=== PATIENT | female | born 1990 | race Caucasian/White ===

== ENCOUNTER → 2016-09-20 | Outpatient (CLI) | payer MEDICAID ==
[~2016-09-20] MED LIST: MOTR200T44 PO
== END ==
LOC: M OUTALCOH 07:40
PROVIDERS: ATTEND Psychiatry & Neurology Psychiatry
DX: Z03.89 Encounter for observation for other suspected diseases and conditions ruled out (principal)

== ENCOUNTER → 2017-03-26 | Outpatient (CLI) | payer OTHER | LOC: M RAD 16:11 | DX: O03.9 Complete or unspecified spontaneous abortion without complication (principal); Z3A.01 Less than 8 weeks gestation of pregnancy | CPT/HCPCS: 76801 ==

== ENCOUNTER → 2017-07-16 | Outpatient (CLI) | payer OTHER ==
[2017-07-16 10:42] LABS: HEMATOCRIT 38.9 % (36.0-47.0); MEAN CORPUSCULAR HEMOGLOBIN 30.5 pg (27.0-33.0); MEAN CORPUSCULAR HGB CONC 33.4 g/dl (32.0-36.5); MEAN CORPUSCULAR VOLUME 91.3 fl (80.0-96.0); PLATELET COUNT, AUTOMATED 262 10^3/uL (150-450); RED BLOOD COUNT 4.26 10^6/uL (4.00-5.40); RED CELL DISTRIBUTION WIDTH 11.9 % (11.5-14.5); WHITE BLOOD COUNT 7.4 10^3/uL (4.0-10.0)
[2017-07-16 11:14] LABS: ALBUMIN 3.5 GM/DL (3.2-5.2); ALBUMIN/GLOBULIN RATIO 1.09 (1.00-1.93); ALKALINE PHOSPHATASE 53 U/L (45-117); ALT/SGPT 19 U/L (12-78); ANION GAP 5 MEQ/L (8-16); AST/SGOT 14 U/L (7-37); BILIRUBIN,TOTAL 0.4 MG/DL (0.2-1.0); BLOOD UREA NITROGEN 11 MG/DL (7-18); CALCIUM LEVEL 8.6 MG/DL (8.5-10.1); CARBON DIOXIDE LEVEL 28 MEQ/L (21-32); CHLORIDE LEVEL 108 MEQ/L (98-107); CHOLESTEROL LEVEL 163 MG/DL (<200); CHOLESTEROL RISK RATIO 2.629 (<5); CREATININE FOR GFR 0.82 MG/DL (0.55-1.30); GLOMERULAR FILTRATION RATE > 60.0 (>60); GLUCOSE, FASTING 91 MG/DL (70-100); HDL CHOLESTEROL 62 MG/DL (>40); IRON (FE) 74 UG/DL (50-170); LDL CHOLESTEROL 88.8 MG/DL (<100); NON-HDL-C 101 MG/DL; PERCENT SATURATION 21.9 % (13.2-45.0); POTASSIUM SERUM 4.3 MEQ/L (3.5-5.1); SODIUM LEVEL 141 MEQ/L (136-145); THYROXINE (T4) 8.5 UG/DL (4.5-12.0); TOTAL IRON BINDING CAPACITY 338 UG/DL (250-450); TOTAL PROTEIN 6.7 GM/DL (6.4-8.2); TRIGLYCERIDES LEVEL 61 MG/DL (<150)
[2017-07-16 11:16] LABS: TOTAL 25(OH) VITAMIN D 26.8 NG/ML (30.0-100.0)
[2017-07-16 11:17] LABS: TOTAL T3 123.5 NG/DL (60.0-181.0)
== END ==
LOC: M LAB 09:43
DX: I10 Essential (primary) hypertension (principal)
CPT/HCPCS: 71046

== ENCOUNTER → 2017-08-21 | Outpatient (REF) | payer OTHER ==
[2017-08-21 13:16] LABS: HEMATOCRIT 37.6 % (36.0-47.0); HEMOGLOBIN 12.7 g/dl (12.0-15.5); MEAN CORPUSCULAR HEMOGLOBIN 30.9 pg (27.0-33.0); MEAN CORPUSCULAR HGB CONC 33.8 g/dl (32.0-36.5); MEAN CORPUSCULAR VOLUME 91.5 fl (80.0-96.0); PLATELET COUNT, AUTOMATED 245 10^3/uL (150-450); RED BLOOD COUNT 4.11 10^6/uL (4.00-5.40); RED CELL DISTRIBUTION WIDTH 12.1 % (11.5-14.5); WHITE BLOOD COUNT 6.9 10^3/uL (4.0-10.0)
[2017-08-21 13:17] LABS: URINE PREG TEST POSITIVE (NEGATIVE)
[2017-08-21 13:18] LABS: CONTROL LINE UCG INT CTR LINE PRESENT
[2017-08-21 14:14] LABS: HCG, SERUM QUANTITATIVE 50250 MIU/ML
[2017-08-22 08:44] LABS: RUBELLA IgG QUALITATIVE IMMUNE (IMMUNE)
[2017-08-22 08:50] LABS: HEPATITIS B SURFACE ANTIGEN NEGATIVE (NEGATIVE)
[2017-08-22 09:12] LABS: HEPATITIS C VIRUS ABY INDEX < 0.0 INDEX (<0.8)
[2017-08-22 09:13] LABS: HIV 1&2 SCREEN CENTAUR NEGATIVE (NEGATIVE)
== END ==
LOC: M LAB REF 12:40
DX: O36.80X0 Pregnancy with inconclusive fetal viability, not applicable or unspecified (principal)

== ENCOUNTER → 2017-12-11 | Outpatient (REF) | payer OTHER ==
[2017-12-12 00:22] LABS: CHLAMYDIA DNA AMPLIFICATION NEGATIVE (NEGATIVE); GC DNA AMPLIFICATION NEGATIVE (NEGATIVE)
== END ==
LOC: M LAB REF 17:06
DX: Z30.430 Encounter for insertion of intrauterine contraceptive device (principal); Z11.3 Encounter for screening for infections with a predominantly sexual mode of transmission

== ENCOUNTER 2018-12-17 10:23 | Emergency (ER) | payer OTHER, SELFPAY ==
[~2018-12-17] VITALS: Ht 167.6 cm; Wt 86.9 kg
[2018-12-17 10:23] VITALS: BP 125/80
[2018-12-17] MEDS ORDERED: MACR100C43 PO (11:24)
== END 2018-12-17 11:38 | disposition home or self-care (01) ==
LOC: M ED 10:23
DX: O23.41 Unspecified infection of urinary tract in pregnancy, first trimester (principal); Z3A.00 Weeks of gestation of pregnancy not specified

== ENCOUNTER 2018-12-29 00:14 | Emergency (ER) | payer MEDICAID, SELFPAY ==
[~2018-12-29] VITALS: Ht 167.6 cm; Wt 85.9 kg
[~2018-12-29 00:14] MED LIST changes: +MACR100C43 PO
[2018-12-29] MEDS ORDERED: AZO-95TA3 PO (00:39)
[2018-12-29 04:38] VITALS: BP 100/58
--- NOTE | 2018-12-29 08:51 | REP ---
Emergency first trimester obstetric sonography: History: Vaginal bleeding. Repeat dictation. Preliminary report is provided at time of exam by [facility]. Findings: Transabdominal and transvaginal scanning are performed. There is an intrauterine gestational sac containing a yolk sac and a 2 mm presumed embryonic pole. This would correspond to a 5-week 5-day gestational age estimate. cardiac activity was observed by the technologist. A heart rate tracing is submitted at 71 beats per minute although I am not confident that this represents cardiac activity accurately. In any event this is quite bradycardic. There is evidence of a subchorionic bleed measuring 2.3 x 1.3 x 1.2 cm. There is a 2.8 cm left ovarian cyst is seen consistent with corpus luteum. Impression: Intrauterine gestation of 5 weeks 5 days by crown-rump length. bradycardia. Clinical and sonographic followup recommended. There is a subchorionic hemorrhage 2.3 x 1.3 x 1.2 cm. Electronically Signed by Fran Hurst MD 12/29/2018 08:42 A
== END 2018-12-29 04:40 | disposition home or self-care (01) ==
LOC: M ED 00:14
DX: O20.0 Threatened abortion (principal); O99.330 Smoking (tobacco) complicating pregnancy, unspecified trimester; O23.40 Unspecified infection of urinary tract in pregnancy, unspecified trimester; Z3A.00 Weeks of gestation of pregnancy not specified

== ENCOUNTER → 2018-12-31 | Outpatient (REF) | payer MEDICAID ==
[~2018-12-31] MED LIST changes: +AZO-95TA3 PO
[2018-12-31 18:15] LABS: HEMATOCRIT 43.1 % (36.0-47.0); HEMOGLOBIN 14.2 g/dl (12.0-15.5); MEAN CORPUSCULAR HEMOGLOBIN 31.8 pg (27.0-33.0); MEAN CORPUSCULAR HGB CONC 32.9 g/dl (32.0-36.5); MEAN CORPUSCULAR VOLUME 96.6 fl (80.0-96.0); PLATELET COUNT, AUTOMATED 249 10^3/uL (150-450); RED BLOOD COUNT 4.46 10^6/uL (4.00-5.40); WHITE BLOOD COUNT 7.9 10^3/uL (4.0-10.0)
[2018-12-31 22:43] LABS: FREE T4 0.83 NG/DL (0.76-1.46); HCG, SERUM QUANTITATIVE 25989 MIU/ML
[2019-01-01 09:09] LABS: FREE T3 3.4 PG/ML (2.2-4.0)
[2019-01-01 09:39] LABS: RUBELLA IgG QUALITATIVE IMMUNE (IMMUNE)
[2019-01-01 10:08] LABS: HEPATITIS C VIRUS ABY INDEX 0.1 INDEX (<0.8); HIV 1&2 SCREEN CENTAUR NEGATIVE (NEGATIVE)
[2019-01-02 08:11] LABS: TOXOPLASMA IgG ABY <3.0 IU/mL (0.0-7.1)
== END ==
LOC: M LAB REF 16:40
PROVIDERS: ATTEND Obstetrics & Gynecology
DX: O36.80X0 Pregnancy with inconclusive fetal viability, not applicable or unspecified (principal); Z32.01 Encounter for pregnancy test, result positive

== ENCOUNTER 2019-02-11 20:57 | Emergency (ER) | payer MEDICAID, SELFPAY ==
[~2019-02-11] VITALS: Ht 167.6 cm; Wt 83.6 kg
[2019-02-11 22:17] LABS: BASO % 0.3 % (0.0-1.0); EOS # 0.1 10^3/uL (0.0-0.5); EOS % 1.4 % (0.0-3.0); HEMATOCRIT 36.8 % (36.0-47.0); HEMOGLOBIN 12.5 g/dl (12.0-15.5); LYMPH # 2.6 10^3/uL (1.5-5.0); LYMPH % 27.2 % (24.0-44.0); MEAN CORPUSCULAR HEMOGLOBIN 32.4 pg (27.0-33.0); MEAN CORPUSCULAR VOLUME 95.3 fl (80.0-96.0); MONO # 0.4 10^3/uL (0.0-0.8); MONO % 3.6 % (0.0-5.0); NEUTROPHILS # 6.5 10^3/uL (1.5-8.5); PLATELET COUNT, AUTOMATED 236 10^3/uL (150-450); RED BLOOD COUNT 3.86 10^6/uL (4.00-5.40); WHITE BLOOD COUNT 9.7 10^3/uL (4.0-10.0)
[2019-02-11] MEDS ORDERED: LEVO75TA4 (22:26)
[2019-02-11 22:56] LABS: ALBUMIN 3.2 GM/DL (3.2-5.2); ALT/SGPT 25 U/L (12-78); BILIRUBIN,DIRECT < 0.1 MG/DL (0.0-0.2); BILIRUBIN,TOTAL 0.3 MG/DL (0.2-1.0); BLOOD UREA NITROGEN 7 MG/DL (7-18); CALCIUM LEVEL 8.8 MG/DL (8.5-10.1); CARBON DIOXIDE LEVEL 26 MEQ/L (21-32); CHLORIDE LEVEL 105 MEQ/L (98-107); CREATININE FOR GFR 0.56 MG/DL (0.55-1.30); GLOMERULAR FILTRATION RATE > 60.0 (>60); GLUCOSE, FASTING 84 MG/DL (70-100); HCG, SERUM QUANTITATIVE 88407 MIU/ML; LIPASE 90 U/L (73-393); POTASSIUM SERUM 3.6 MEQ/L (3.5-5.1); SODIUM LEVEL 137 MEQ/L (136-145); TOTAL PROTEIN 6.5 GM/DL (6.4-8.2)
[2019-02-12] MEDS ORDERED: KEFL500C17 PO (01:00)
[2019-02-12] MEDS ORDERED: CEPHALEXIN 500 MG CAP PO ONE (01:00)
[2019-02-12 01:20] VITALS: BP 116/66
--- NOTE | 2019-02-12 08:04 | REP ---
Clinical: Abdominal and left flank pain. Technique: Real time thomas scale and color evaluation using curved array transducer. Findings: The bilateral kidneys are normal in contour, size, echogenicity, and reniform shape without hydronephrosis, nephrolithiasis, cystic or renal mass lesion. Right kidney measures 11.8 x 5.8 x 4.7 cm. Left kidney measures 11.4 x 4.7 x 4.5 cm. The bladder is unremarkable and bilateral ureteral jets are identified. Incidental findings include cholelithiasis without evidence for biliary ductal dilatation. The common bile duct measured 2.6 mm diameter. Impression: 1. Normal renal and bladder ultrasound. 2. Cholelithiasis noted. Electronically Signed by Marty Boone MD 02/12/2019 07:56 A
== END 2019-02-12 01:23 | disposition home or self-care (01) ==
LOC: M ED 20:57
DX: N39.0 Urinary tract infection, site not specified (principal); R10.9 Unspecified abdominal pain; E03.9 Hypothyroidism, unspecified; Z87.440 Personal history of urinary (tract) infections; Z79.899 Other long term (current) drug therapy

== ENCOUNTER → 2019-03-27 | Outpatient (CLI) | payer MEDICAID ==
[~2019-03-27] MED LIST changes: +KEFL500C17 PO; +LEVO75TA4
--- NOTE | 2019-03-27 13:46 | REP ---
Emergency obstetric sonography: History: 18 weeks gestation. Evaluate viability. Findings: Transabdominal scanning demonstrates a single living intrauterine gestation. Variable lie. motion is observed and heart rate is recorded at 134 beats per minute. A posterior placenta is seen grade 0, with evidence of complete placenta previa at this juncture. The patient declined transvaginal evaluation. Amniotic fluid is subjectively normal. Closed cervical length viewed transabdominally is 4.1 cm. No anomaly is seen. The umbilical cord is seen coursing over the neck posteriorly. No anomaly is seen. The following anatomic structures were less than optimally seen due to position: Cavum, cerebellum and posterior fossa, face and profile, four-chamber heart with left and right ventricular outflow tract views. The following anatomic structures are identified and felt to be unremarkable: cranium, choroid plexus, lungs, diaphragm, left-sided stomach, abdominal wall cord insertion, three-vessel umbilical cord, kidneys and bladder, spine, and upper and lower extremities. Biometry chart: BPD 3.7 cm = 17 weeks 3 days Head circumference 14.4 cm = 17 weeks 4 days Abdominal circumference 11.9 cm = 17 weeks 4 days Femur length 2.7 cm = 18 weeks 1 day Humeral length 2.6 cm = 18 weeks 2 days HC/AC ratio normal 1.21. Cephalic index normal 0.70. Estimated weight 213 grams, 0 pounds 7 ounces, 30th percentile for 18 weeks 2 days. Impression: Viable single intrauterine gestation at 17 weeks 6 days by today's composite sonographic criteria. Expected gestational age estimate based on prior sonography is 18 weeks 2 days. MACKENZIE by prior sonography August 26, 2019. There has been appropriate interval growth. Transabdominal images show evidence of complete placenta previa. Electronically Signed by Fran Hurst MD 03/27/2019 03:12 P
== END ==
LOC: M RAD 12:23
PROVIDERS: ATTEND Obstetrics & Gynecology
DX: Z36.89 Encounter for other specified antenatal screening (principal); Z3A.18 18 weeks gestation of pregnancy; O28.3 Abnormal ultrasonic finding on antenatal screening of mother

== ENCOUNTER → 2019-04-11 | Outpatient (CLI) | payer MEDICAID ==
--- NOTE | 2019-04-11 15:05 | REP ---
Obstetric ultrasound for anatomy follow-up: The on the prior study of 03/27/2019 the following structures were suboptimally demonstrated because of position: Cavum septum pellucidum, cerebellum/posterior fossa, face and facial profile, four-chamber view of the heart and cardiac right and left ventricular outflow tracts. Additionally, a complete placenta previa was identified previously. On the study today the cavum septum pellucidum, cerebellum/posterior fossa, face, upper lip, facial profile, four-chamber view of the heart, the end cardiac right and left ventricular outflow tracts. The remainder of the anatomy is again identified and again unremarkable as previously. There are no anomalies. A complete placenta previa is again identified. Follow-up is recommended to identify placental migration. The placenta is posterior as previously. There is a single intrauterine gestation. position is variable. There is motion and cardiac activity. The heart rate is 133 beats per minute. The amniotic fluid volume subjectively is normal. Gestational age by today's ultrasound is 19 weeks 4 days/MACKENZIE 09/01/2019. Gestational age by the first ultrasound is 20 weeks 3 days/MACKENZIE 08/26/2019. Gestational age by LMP is 20 weeks 3 days/MACKENZIE 08/26/2019. weight is 322 grams/0 pounds, 11 ounces. This is the 31st percentile for 20 weeks 3 days. Impression: Complete placenta previa with a posterior placenta. Follow-up is recommended to identify placental migration. There are no anomalies as discussed above. Electronically Signed by Wilmer Kingston MD 04/11/2019 02:57 P
== END ==
LOC: M RAD 13:05
PROVIDERS: ATTEND Obstetrics & Gynecology
DX: O44.02 Complete placenta previa NOS or without hemorrhage, second trimester (principal); Z36.89 Encounter for other specified antenatal screening; Z3A.19 19 weeks gestation of pregnancy

== ENCOUNTER → 2019-06-05 | Outpatient (CLI) | payer MEDICAID ==
--- NOTE | 2019-06-05 12:50 | REP ---
OBSTETRIC SONOGRAPHY: HISTORY: at 28 weeks. Followup complete placenta previa. Supervision of . Comparison study April 11, 2019. FINDINGS: Scanning demonstrates a viable single intrauterine gestation in a cephalic lie. motion is observed and heart rate is recorded at 150 beats per minute. A posterior placenta is seen with complete placenta previa again noted. There is no evidence of abruption, grade 1. Amniotic fluid is subjectively normal. Closed cervical length is measured transvaginally at 4.3 cm. No extrauterine abnormality is observed. There has been appropriate interval growth. No anomalies seen. The following anatomic structures are again identified today and felt to be unremarkable: cranium, choroid plexus, cavum, cerebellum and posterior fossa, face and profile, lungs, four-chamber heart, diaphragm, left-sided stomach, abdominal wall cord insertion, three-vessel cord, kidneys and bladder, spine. Biometry Chart: BPD 6.5 cm = 26 weeks 3 days HC 25.7 cm = 28 weeks 0 days AC 22.6 cm = 27 weeks 0 days FL 5.4 cm = 28 weeks 3 days HL 4.8 cm = 28 weeks 2 days HC/AC ratio normal 1.14 Cephalic index normal 0.68. Estimated weight 1091 grams, 2 pounds 6 ounces, 25th percentile for 28 weeks 2 days. DAY normal 14.8 cm. S/D ratio in the umbilical cord artery by Doppler normal 2.66. IMPRESSION: Viable single intrauterine gestation at 27 weeks 4 days by today's composite sonographic criteria for expected gestational age estimate based on prior sonography is 28 weeks 2 days. MACKENZIE by prior sonography August 26, 2019. Complete posterior placenta previa persists. Electronically Signed by Fran Hurst MD 06/05/2019 12:57 P
== END ==
LOC: M RAD 11:15
PROVIDERS: ATTEND Obstetrics & Gynecology
DX: O44.02 Complete placenta previa NOS or without hemorrhage, second trimester (principal); Z36.2 Encounter for other antenatal screening follow-up; Z3A.27 27 weeks gestation of pregnancy

== ENCOUNTER → 2019-06-13 | Outpatient (CLI) | payer MEDICAID ==
[2019-06-13 13:13] LABS: HEMATOCRIT 34.8 % (36.0-47.0); HEMOGLOBIN 11.8 g/dl (12.0-15.5); MEAN CORPUSCULAR HGB CONC 33.9 g/dl (32.0-36.5); MEAN CORPUSCULAR VOLUME 97.2 fl (80.0-96.0); PLATELET COUNT, AUTOMATED 216 10^3/uL (150-450); RED BLOOD COUNT 3.58 10^6/uL (4.00-5.40)
[2019-06-13 13:47] LABS: FREE T3 2.4 PG/ML (2.2-4.0); THYROID STIMULATING HORMONE 1.45 uIU/ML (0.358-3.740)
== END ==
LOC: M LAB 11:46
PROVIDERS: ATTEND Obstetrics & Gynecology
DX: Z36.89 Encounter for other specified antenatal screening (principal); E03.9 Hypothyroidism, unspecified; Z3A.00 Weeks of gestation of pregnancy not specified

== ENCOUNTER → 2019-07-30 | Outpatient (REF) | payer OTHER ==
[~2019-07-30] MED LIST changes: +CRAN400C PO; -LEVO75TA4; +LEVO75TA4 PO; +PREN29TA4 PO; +PRIL20TA2 PO
== END ==
LOC: M LAB REF 12:39
PROVIDERS: ATTEND Obstetrics & Gynecology
DX: Z34.83 Encounter for supervision of other normal pregnancy, third trimester (principal)

== ENCOUNTER → 2019-08-12 | Outpatient (CLI) | payer OTHER ==
[~2019-08-12] MED LIST changes: +IBUP80TA PO; +PERCOCET PO
== END ==
LOC: M LABSMTC 09:42
PROVIDERS: ATTEND Anesthesiology
DX: Z01.818 Encounter for other preprocedural examination (principal); Z11.59 Encounter for screening for other viral diseases
CPT/HCPCS: C9803; U0003

== ENCOUNTER 2019-08-15 05:28 | Inpatient (IN) | payer OTHER ==
[2019-08-15] VITALS (9 sets, daily range): BP systolic 96–120; BP diastolic 53–69
[~2019-08-15] VITALS: Ht 170.2 cm; Wt 86.1 kg
[~2019-08-15 05:28] MED LIST changes: -IBUP80TA PO; -PERCOCET PO
[2019-08-15] MEDS ORDERED: LR 1,000 ML IV SCH (05:44)
[2019-08-15] MEDS ORDERED: LACTATED RINGER'S 1000 ML IV STA (05:44)
[2019-08-15] MEDS ORDERED: BICITRA 30ML SOLN UDC PO ONE (05:45)
[2019-08-15] MEDS ORDERED: ceFAZolin SOD 2 GM in IV 1 EA IV ONE (05:45)
[2019-08-15 07:04] LABS: HEMATOCRIT 31.6 % (36.0-47.0); MEAN CORPUSCULAR HEMOGLOBIN 32.3 pg (27.0-33.0); MEAN CORPUSCULAR HGB CONC 34.8 g/dl (32.0-36.5); MEAN CORPUSCULAR VOLUME 92.7 fl (80.0-96.0); PLATELET COUNT, AUTOMATED 212 10^3/uL (150-450); RED BLOOD COUNT 3.41 10^6/uL (4.00-5.40); WHITE BLOOD COUNT 11.2 10^3/uL (4.0-10.0)
[2019-08-15] MEDS ORDERED: METOCLOPRAMIDE INJ 10MG/2ML VIAL (J2765 PER 1) IV PRN (10:07)
[2019-08-15] MEDS ORDERED: NALBUPHINE HCL 10 MG/ML AMP (J2300) IV PRN (10:07)
[2019-08-15] MEDS ORDERED: NALOXONE INJ 0.4MG/1ML VIAL (J2310 PER 1MG) IV PRN ×2 (10:07)
[2019-08-15] MEDS ORDERED: ONDANSETRON 4MG/2ML VIAL IV PRN ×2 (10:07→11:00)
[2019-08-15] MEDS ORDERED: KETOROLAC 60 MG/2 ML VIAL As Ordered ONE (10:26)
[2019-08-15] MEDS ORDERED: dexameTHASONE 4 MG/ML 1ML VIAL (J1100 PER 1MG) As Ordered ONE (10:26)
[2019-08-15] MEDS ORDERED: OXYTOCIN 30 UNITS IN 0.9% NaCl 500ML IV BAG (J2590) As Ordered ONE ×2 (10:26→11:45)
[2019-08-15] MEDS ORDERED: MORPHINE PRES-FREE INJ 10 MG/10 ML VIAL (J2274) As Ordered ONE (10:26)
[2019-08-15] MEDS ORDERED: ONDANSETRON 4MG/2ML VIAL As Ordered ONE ×2 (10:26→12:14)
[2019-08-15] MEDS ORDERED: ePHEDrine SULFATE 25 MG/5 ML(5MG/ML) SYRINGE As Ordered ONE (10:27)
[2019-08-15] MEDS ORDERED: PHENYLephrine HCL 500 MCG/5 ML (100MCG/ML) SYRINGE (J2370) As Ordered ONE (10:27)
[2019-08-15 10:32] LABS: CORD GAS ABE V -2.7; CORD GAS HCO3 V 21.1 MEQ/L; CORD GAS O2 SAT V 90.7 %; CORD GAS PCO2 V 33.8 mmHg; CORD GAS PH V 7.413 UNITS; CORD GAS SBC V 22.1 MEQ/L; CORD GAS TCO2 V 22.1 MEQ/L
[2019-08-15 10:34] LABS: CORD GAS ABE A -2.7; CORD GAS HCO3 A 24.2 MEQ/L; CORD GAS O2 SAT A 67.6 %; CORD GAS PCO2 A 50.4 mmHg; CORD GAS PH A 7.3 UNITS; CORD GAS SBC A 21.6 MEQ/L; CORD GAS TCO2 A 25.8 MEQ/L
[2019-08-15] MEDS ORDERED: OXYTOCIN DRIP 30 UNITS in IV 1 EA IV SCH (10:50)
[2019-08-15] MEDS ORDERED: oxyCODONE 5MG TAB PO PRN (11:00)
[2019-08-15] MEDS ORDERED: RHOGAM 300 MCG (1500 IU) INJ (J2790) IM SCH (11:00)
[2019-08-15] MEDS ORDERED: MOM 30ML SUSPENSION UDC PO PRN (11:00)
[2019-08-15] MEDS ORDERED: fentaNYL 100 MCG/2 ML INJECTION (J3010) IV PRN (11:00)
[2019-08-15] MEDS ORDERED: MEASLES,MUMPS,RUBELLA VACCINE INJ (MMR-II) (90707) SC SCH (11:00)
[2019-08-15] MEDS: diphenhydrAMINE 50MG/ML VIAL (J1200) IV PRN (13:17)
[2019-08-15] MEDS: KETOROLAC 30 MG/ML 1ML VIAL IV SCH ×2 (17:04→23:16)
[2019-08-15] MEDS: DOCUSATE SODIUM 100 MG CAP PO SCH (20:25)
[2019-08-16] VITALS (7 sets, daily range): BP systolic 82–119; BP diastolic 46–64
[2019-08-16] MEDS: diphenhydrAMINE 50MG/ML VIAL (J1200) IV PRN (02:23)
[2019-08-16] MEDS: KETOROLAC 30 MG/ML 1ML VIAL IV SCH (04:53)
[2019-08-16 07:01] LABS: HEMATOCRIT 28.4 % (36.0-47.0); HEMOGLOBIN 9.6 g/dl (12.0-15.5); MEAN CORPUSCULAR HGB CONC 33.8 g/dl (32.0-36.5); MEAN CORPUSCULAR VOLUME 94.7 fl (80.0-96.0); PLATELET COUNT, AUTOMATED 199 10^3/uL (150-450); WHITE BLOOD COUNT 12.1 10^3/uL (4.0-10.0)
--- NOTE | 2019-08-16 07:28 | IPNPDOC ---
Text Note Date of Service The patient was seen on 08/16/19. NOTE PO #1 Feels well. Adequate pain management. Tolerating regular diet. Voiding VSS, afebrile,normotensive Breasts soft Dressing removed. Steristrips intact. Wound well approximated without s/s infection Fundus firm Lochia rubra scant without odor PO #1 Routine care. Anticipate D/C in am VS,Fishbone, I+O VS, Fishbone, I+O Laboratory Tests 08/16/19 06:44 Vital Signs Date Time Temp Pulse Resp B/P (MAP) Pulse Ox O2 Delivery O2 Flow Rate FiO2 08/16/19 06:20 97/53 (68) 08/16/19 06:00 98.0 59 18 99 Room Air I&O- Last 24 Hours up to 6 AM 08/16/19 06:00 Intake Total 2550 ml Output Total 1450 ml Balance 1100 ml Jelena Pat CNM Aug 16, 2019 07:28
[2019-08-16] MEDS ORDERED: BOOSTRIX/ADACEL VACCINE (DIPHTH/PERTUSS/ACELL/TETANUS) 0.5ML SYR IM ONE (09:00)
[2019-08-16] MEDS: DOCUSATE SODIUM 100 MG CAP PO SCH ×2 (10:00→21:33)
[2019-08-16] MEDS: PRENATAL VITAMINS CHEWABLE TABLET PO SCH (10:00)
[2019-08-16] MEDS: IBUPROFEN 800 MG TAB PO SCH ×2 (15:03→22:06)
[2019-08-16] MEDS: PERCOCET 5MG/325MG TAB PO PRN ×2 (18:28→23:36)
[2019-08-17] MEDS: IBUPROFEN 800 MG TAB PO SCH ×2 (05:45→13:24)
[2019-08-17 05:47] VITALS: BP 96/55
[2019-08-17] MEDS: PRENATAL VITAMINS CHEWABLE TABLET PO SCH (08:35)
[2019-08-17] MEDS: PERCOCET 5MG/325MG TAB PO PRN (08:35)
[2019-08-17] MEDS: DOCUSATE SODIUM 100 MG CAP PO SCH (08:35)
[2019-08-17] MEDS ORDERED: PERCOCET PO (10:29)
[2019-08-17] MEDS ORDERED: IBUP80TA PO (10:29)
--- NOTE | 2019-08-17 10:35 | DS.PDOC ---
Discharge Summary General Date of Admission Aug 15, 2019 at 05:28 Date of Discharge 08/17/19 Attending Physician: Roberto Childress DO Discharge Summary PROCEDURES PERFORMED DURING STAY: section and spinal anesthesia. ADMITTING DIAGNOSES: 1. Placenta previa. DISCHARGE DIAGNOSES: 1. Placenta previa. COMPLICATIONS/CHIEF COMPLAINT: Placenta Previa. HISTORY OF PRESENT ILLNESS:. Cystoscopy 29-year-old who presented for scheduled section for placenta previa which was uncomplicated. HOSPITAL COURSE:. She did well and postoperatively. By post-operative day #2, had met all discharge criteria. Cystoscopy was discharged home in stable condition. DISCHARGE MEDICATIONS: Please see below. ALLERGIES: Please see below. PHYSICAL EXAMINATION ON DISCHARGE: VITAL SIGNS: Please see below. GENERAL:. Well-appearing ABDOMINAL EXAMINATION: Soft, appropriately tender. Fundus is below umbilicus. Incision was clean, dry, intact, well approximated with Steri-Strips EXTREMITIES: Negative calf tenderness LABORATORY DATA: Please see below. ACTIVITY: As tolerated. DIET: Regular DISCHARGE PLAN:. Discharge home with follow-up with Dr. Childress and 2 weeks DISCHARGE INSTRUCTIONS: 1. Follow-up in 2 weeks for incision check. 2. Remain on pelvic rest for 6 weeks. 3. Reports severe pain, heavy vaginal bleeding, fever, incisional issues. DISCHARGE CONDITION: Stable. Vital Signs/I&Os Vital Signs Date Time Temp Pulse Resp B/P (MAP) Pulse Ox O2 Delivery O2 Flow Rate FiO2 08/17/19 08:35 18 08/17/19 05:47 97.8 67 96/55 (69) 08/16/19 22:02 100 08/16/19 18:00 Room Air Discharge Medications Scheduled Cranberry (Cranberry) 400 Mg Capsule, 2 CAP PO DAILY, (Reported) Ibuprofen (Ibuprofen) 800 Mg Tablet, 800 MG PO Q8H Levothyroxine Sodium (Levothyroxine Sodium) 75 Mcg Tablet, 75 MCG PO DAILY, (Reported) Omeprazole Magnesium (Prilosec Otc) 20 Mg Tablet.dr, 20 MG PO DAILY, (Reported) Prenat 115/Iron Fum/Folic/Dss ( 19 Tablet) 1 Each Tablet, 1 TAB PO DAILY, (Reported) Scheduled PRN Oxycodone/Acetaminophen (Oxycodone-Acetaminophen 5-325) 1 Each Tablet, 1-2 TAB PO Q6HP PRN for MILD/MODERATE PAIN (PS 1-7) Allergies Coded Allergies: No Known Allergies (Verified , 08/01/19) QUYNH CHILDERS MD. Aug 17, 2019 10:35
--- NOTE | 2019-08-20 11:30 | RO ---
DATE OF PROCEDURE: 08/15/2019 Kimber is 29-year-old female with term with complete placenta previa. After counseling, decision was made to proceed with delivery via primary section. PREOPERATIVE DIAGNOSES: 1. Term . 2. Complete placenta previa. POSTOPERATIVE DIAGNOSES: 1. Term . 2. Complete placenta previa. PROCEDURE: Primary low transverse section via Pfannenstiel incision. SURGEON: Dr. 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 COMPLICATIONS: None. ESTIMATED BLOOD LOSS: 500 mL. FINDINGS: Live male infant in occiput transverse position. 9 and 9. weight 6 pounds 10 ounces. A posterior complete placenta previa noted. Placenta sent to pathology. DESCRIPTION OF PROCEDURE: After obtaining informed consent, the patient was taken to the operating room where spinal anesthetic was found to be adequate. She was then draped and prepped in the usual sterile fashion in the supine position. At this point, a Pfannenstiel incision was made. This was carried down to the fascia. Fascia was incised in midline fashion and carried through laterally. Superior aspect of the fascia was then grasped with two Martín clamps, tented off and dissected off the rectus muscles sharply. The inferior aspect was dissected off in a similar fashion. Rectus muscles in midline fashion. Peritoneum identified. Peritoneal cavity entered bluntly. Superior and inferior dissection of the peritoneum was then done with good visualization of the bladder. At this point, a Mobius skin retractor was placed. A low-transverse uterine incision was made. was delivered in atraumatic fashion. Nose and mouth bulb suctioned. Cord doubly clamped and cut. The infant was handed over to the waiting warmer. Cord blood and cord gas were sent. Placenta removed manually. Uterus cleared of all clot and debris. The uterine incision was then repaired in two separate layers of #0 Vicryl sutures. The peritoneum closed in a running fashion using #2-0 Vicryl. The fascia closed in two separate segments of #0 Vicryl sutures. All superficial bleeders were coagulated. The skin was reapproximated in subcuticular fashion using #3-0 Vicryl on a Cornel. Steri-Strips placed. The patient tolerated the procedure well. She was then transferred to recovery room in stable condition.
== END 2019-08-17 14:40 | disposition home or self-care (01) | DRG 540 ==
LOC: M LDI 05:28 → M OBS 12:20
PROVIDERS: ADMIT Obstetrics & Gynecology; ATTEND Obstetrics & Gynecology
PROC: 10D00Z1 Extraction of Products of Conception, Low, Open Approach (ICD-10-PCS; principal; 2019-08-15 07:30)
DX: O44.03 Complete placenta previa NOS or without hemorrhage, third trimester (principal); Z37.0 Single live birth; Z3A.39 39 weeks gestation of pregnancy

== ENCOUNTER → 2022-05-09 | Outpatient (REF) | payer OTHER, MEDICAID ==
[~2022-05-09] MED LIST changes: +IBUP80TA PO; +PERCOCET PO
[2022-05-09 12:46] LABS: HEMATOCRIT 31.5 % (36.0-47.0); HEMOGLOBIN 10.7 g/dl (12.0-15.5); MEAN CORPUSCULAR HEMOGLOBIN 32.2 pg (27.0-33.0); MEAN CORPUSCULAR VOLUME 94.9 fl (80.0-96.0); PLATELET COUNT, AUTOMATED 267 10^3/uL (150-450); RED BLOOD COUNT 3.32 10^6/uL (4.00-5.40); WHITE BLOOD COUNT 9.4 10^3/uL (4.0-10.0)
[2022-05-09 13:17] LABS: FREE T3 3.2 PG/ML (2.3-4.2); FREE T4 0.82 NG/DL (0.89-1.76)
[2022-05-09 13:19] LABS: THYROID STIMULATING HORMONE 4.497 uIU/ML (0.55-4.78)
[2022-05-09 14:56] LABS: HEPATITIS B SURFACE ANTIGEN NEGATIVE (NEGATIVE)
[2022-05-09 15:08] LABS: HIV 1&2 SCREEN CENTAUR NEGATIVE (NEGATIVE)
[2022-05-09 15:17] LABS: HEPATITIS C VIRUS ABY INDEX < 0.0 INDEX (<0.8)
[2022-05-09 15:19] LABS: HCG, SERUM QUANTITATIVE 11790.9 MIU/ML (<4.2)
== END ==
LOC: M LAB REF 12:21
PROVIDERS: ATTEND Obstetrics & Gynecology
DX: O36.80X0 Pregnancy with inconclusive fetal viability, not applicable or unspecified (principal); Z32.01 Encounter for pregnancy test, result positive

== ENCOUNTER → 2022-05-25 | Outpatient (CLI) | payer OTHER | LOC: M WHC 13:50 | PROVIDERS: ATTEND Obstetrics & Gynecology | DX: O36.80X0 Pregnancy with inconclusive fetal viability, not applicable or unspecified (principal); Z3A.29 29 weeks gestation of pregnancy ==

== ENCOUNTER → 2022-05-30 | Outpatient (REF) | payer OTHER, MEDICAID | LOC: M LAB REF 12:32 | PROVIDERS: ATTEND Advanced Practice Midwife | DX: Z34.82 Encounter for supervision of other normal pregnancy, second trimester (principal) ==

== ENCOUNTER → 2022-07-12 | Outpatient (REF) | payer OTHER, MEDICAID ==
[2022-07-12 17:32] LABS: FREE T3 3.3 PG/ML (2.3-4.2)
[2022-07-12 17:33] LABS: FREE T4 0.9 NG/DL (0.89-1.76); THYROID STIMULATING HORMONE 3.823 uIU/ML (0.55-4.78)
== END ==
LOC: M LAB REF 16:15
PROVIDERS: ATTEND Obstetrics & Gynecology
DX: Z34.83 Encounter for supervision of other normal pregnancy, third trimester (principal)

== ENCOUNTER 2022-07-17 17:27 | Outpatient (CLI) | payer OTHER, MEDICAID ==
[~2022-07-17] VITALS: Ht 167.6 cm; Wt 96.8 kg
[2022-07-17 17:53] VITALS: BP 109/59
[2022-07-17] MEDS ORDERED: FERR325T3 PO (18:01)
[2022-07-17] MEDS ORDERED: HOME MED LIST COMPLETE! XX SCH (18:05)
[2022-07-17 19:01] VITALS: BP 154/68
== END 2022-07-17 20:45 | disposition home or self-care (01) ==
LOC: M LDO 17:27
PROVIDERS: ATTEND Obstetrics & Gynecology
DX: O36.8130 Decreased fetal movements, third trimester, not applicable or unspecified (principal); Z3A.37 37 weeks gestation of pregnancy
CPT/HCPCS: 59025; 76815; 76819; 76820; G0463

== ENCOUNTER 2022-08-01 09:30 | Inpatient (IN) | payer OTHER ==
[~2022-08-01] VITALS: Ht 167.6 cm; Wt 98.5 kg
[~2022-08-01 09:30] MED LIST changes: +FERR325T3 PO
[2022-08-02] VITALS (9 sets, daily range): BP systolic 96–123; BP diastolic 54–63
[2022-08-02] MEDS ORDERED: ceFAZolin SOD 2 GM in IV 1 EA IV ONE (06:15)
[2022-08-02] MEDS ORDERED: LR 1,000 ML IV ONE (06:15)
[2022-08-02] MEDS ORDERED: BICITRA 30ML SOLN UDC PO ONE ×2 (06:15→08:50)
[2022-08-02 06:24] LABS: HEMATOCRIT 33.3 % (36.0-47.0); HEMOGLOBIN 11.4 g/dl (12.0-15.5); MEAN CORPUSCULAR HEMOGLOBIN 31.1 pg (27.0-33.0); MEAN CORPUSCULAR HGB CONC 34.2 g/dl (32.0-36.5); MEAN CORPUSCULAR VOLUME 90.7 fl (80.0-96.0); PLATELET COUNT, AUTOMATED 234 10^3/uL (150-450); RED BLOOD COUNT 3.67 10^6/uL (4.00-5.40); WHITE BLOOD COUNT 12.2 10^3/uL (4.0-10.0)
[2022-08-02] MEDS ORDERED: RHOGAM 300MCG (1500IU) INJ IM SCH (07:30)
[2022-08-02] MEDS ORDERED: OXYTOCIN DRIP 30 UNITS in IV 1 EA IV SCH (07:30)
[2022-08-02] MEDS ORDERED: ONDANSETRON 4MG 2ML VIAL As Ordered ONE (08:00)
[2022-08-02] MEDS ORDERED: fentaNYL 100 MCG/2 ML INJECTION As Ordered ONE (08:00)
[2022-08-02] MEDS ORDERED: OXYTOCIN INJ 10UNITS/ML 1ML VIAL As Ordered ONE (08:00)
[2022-08-02] MEDS ORDERED: MORPHINE PRES-FREE INJ 10 MG/10 ML VIAL As Ordered ONE (08:00)
[2022-08-02] MEDS ORDERED: ePHEDrine SULFATE 25 MG/5 ML(5MG/ML) SYRINGE As Ordered ONE (08:00)
[2022-08-02] MEDS ORDERED: KETOROLAC 60MG 2ML VIAL As Ordered ONE (08:17)
[2022-08-02 08:22] LABS: CORD GAS ABE V -2.4; CORD GAS HCO3 V 22.9 MMOL/L; CORD GAS PCO2 V 41.7 mmHg; CORD GAS PH V 7.358 UNITS; CORD GAS PO2 V 50.5 mmHg; CORD GAS SBC V 22.3 MMOL/L; CORD GAS TCO2 V 24.2 MMOL/L
[2022-08-02 08:27] LABS: CORD GAS ABE A -3.8; CORD GAS HCO3 A 23.4 MMOL/L; CORD GAS O2 SAT A 73.1 %; CORD GAS PCO2 A 50.9 mmHg; CORD GAS PH A 7.28 UNITS; CORD GAS PO2 A 34.3 mmHg; CORD GAS SBC A 20.8 MMOL/L; CORD GAS TCO2 A 24.9 MMOL/L
[2022-08-02] MEDS ORDERED: LACTATED RINGER'S 1000 ML IV STA (08:49)
[2022-08-02] MEDS ORDERED: oxyCODONE 5MG TAB PO PRN (08:50)
[2022-08-02] MEDS ORDERED: fentaNYL 100 MCG/2 ML INJECTION IV PRN (08:50)
[2022-08-02] MEDS ORDERED: ONDANSETRON 4MG 2ML VIAL IV PRN ×2 (08:50→14:10)
[2022-08-02] MEDS ORDERED: NALOXONE INJ 0.4MG/1ML VIAL IV PRN ×2 (08:50)
[2022-08-02] MEDS ORDERED: LR 1,000 ML IV SCH (08:50)
[2022-08-02] MEDS ORDERED: METOCLOPRAMIDE INJ 10MG/2ML VIAL IV PRN (08:50)
[2022-08-02] MEDS ORDERED: **NOTE PATIENT COMMENT** MISC XX SCH (08:50)
[2022-08-02] MEDS ORDERED: OXYTOCIN 30UNITS IN 0.9% NaCl 500ML IV BAG As Ordered ONE (08:59)
[2022-08-02] MEDS ORDERED: METOCLOPRAMIDE INJ 10MG/2ML VIAL As Ordered ONE (09:55)
[2022-08-02] MEDS: PRENATAL VITAMINS CHEWABLE TABLET PO SCH (11:26)
[2022-08-02] MEDS: DOCUSATE SODIUM 100MG CAPSULE PO SCH ×2 (11:27→20:04)
[2022-08-02] MEDS: SLF 3 ML SYR IV SCH ×2 (11:27→16:50)
[2022-08-02] MEDS: diphenhydrAMINE 50MG/ML VIAL IV PRN (13:34)
[2022-08-02] MEDS: KETOROLAC 30 MG/ML 1ML VIAL IV SCH ×2 (13:35→20:05)
[2022-08-02] MEDS ORDERED: ONDANSETRON 4MG 2ML VIAL IV SCH (13:55)
[2022-08-02] MEDS ORDERED: LR 500 ML IV ONE ×2 (14:10→14:15)
[2022-08-02] MEDS: LR 1,000 ML IV SCH ×2 (14:57→21:55)
[2022-08-03] MEDS: diphenhydrAMINE 50MG/ML VIAL IV PRN ×2 (00:32→07:55)
[2022-08-03] MEDS: PERCOCET 5MG/325MG TAB PO PRN ×4 (00:32→20:50)
[2022-08-03] MEDS: SLF 3 ML SYR IV SCH (00:50)
[2022-08-03 02:00] VITALS: BP 105/56
[2022-08-03] MEDS: KETOROLAC 30 MG/ML 1ML VIAL IV SCH (02:08)
[2022-08-03] MEDS: LR 1,000 ML IV SCH (02:09)
[2022-08-03 06:00] VITALS: BP 92/52
[2022-08-03] MEDS: LEVOTHYROXINE 75MCG TABLET (0.075MG) PO SCH (06:02)
[2022-08-03 06:54] LABS: HEMATOCRIT 29.7 % (36.0-47.0); HEMOGLOBIN 9.8 g/dl (12.0-15.5); MEAN CORPUSCULAR HEMOGLOBIN 30.9 pg (27.0-33.0); MEAN CORPUSCULAR VOLUME 93.7 fl (80.0-96.0); PLATELET COUNT, AUTOMATED 192 10^3/uL (150-450); RED BLOOD COUNT 3.17 10^6/uL (4.00-5.40); WHITE BLOOD COUNT 9.9 10^3/uL (4.0-10.0)
[2022-08-03] MEDS: DOCUSATE SODIUM 100MG CAPSULE PO SCH ×2 (09:01→20:49)
[2022-08-03] MEDS: PRENATAL VITAMINS CHEWABLE TABLET PO SCH (09:01)
[2022-08-03] MEDS: FERROUS SULFATE 325MG TAB PO SCH (09:01)
[2022-08-03] MEDS: IBUPROFEN 800 MG TAB PO SCH ×2 (09:01→17:50)
[2022-08-03 10:00] VITALS: BP 105/60
[2022-08-03 14:00] VITALS: BP 105/59
[2022-08-03] MEDS: SIMETHICONE 80MG CHEW TAB PO PRN (17:04)
[2022-08-03 18:00] VITALS: BP 107/62
[2022-08-03 22:00] VITALS: BP 102/63
[2022-08-04] MEDS: PERCOCET 5MG/325MG TAB PO PRN ×3 (00:31→10:51)
[2022-08-04] MEDS: SIMETHICONE 80MG CHEW TAB PO PRN ×3 (00:31→10:51)
[2022-08-04 02:00] VITALS: BP 105/56
[2022-08-04] MEDS: IBUPROFEN 800 MG TAB PO SCH ×2 (02:32→10:51)
[2022-08-04] MEDS: LEVOTHYROXINE 75MCG TABLET (0.075MG) PO SCH (05:34)
[2022-08-04 05:53] VITALS: BP 103/58
[2022-08-04] MEDS ORDERED: MEASLES,MUMPS,RUBELLA VACCINE INJ (MMR-II) SC.IMMUN ONE (09:00)
[2022-08-04 10:00] VITALS: BP 108/62
[2022-08-04] MEDS: FERROUS SULFATE 325MG TAB PO SCH (10:50)
[2022-08-04] MEDS: PRENATAL VITAMINS CHEWABLE TABLET PO SCH (10:51)
[2022-08-04] MEDS: DOCUSATE SODIUM 100MG CAPSULE PO SCH (10:51)
[2022-08-04 10:59] VITALS: BP 108/62
[2022-08-04] MEDS ORDERED: IBUP80TA PO (11:25)
[2022-08-04] MEDS ORDERED: PERCOCET PO (11:25)
[2022-08-17] MEDS ORDERED: IBUP1TAB7 PO (01:54)
[2022-08-17] MEDS ORDERED: PERCOCET PO (01:54)
[2022-08-17] MEDS ORDERED: MULTTAB20 PO (01:55)
== END 2022-08-04 12:07 | disposition home or self-care (01) | DRG 540 ==
LOC: M LDI 08-02 05:28 → M OBS 08-02 10:46
PROVIDERS: ADMIT Obstetrics & Gynecology; ATTEND Obstetrics & Gynecology
PROC: 10D00Z1 Extraction of Products of Conception, Low, Open Approach (ICD-10-PCS; principal; 2022-08-02 07:30)
DX: O34.211 Maternal care for low transverse scar from previous cesarean delivery (principal); Z37.0 Single live birth; Z3A.39 39 weeks gestation of pregnancy

== ENCOUNTER 2022-11-26 17:27 | Emergency (ER) | payer MEDICAID, OTHER ==
[~2022-11-26] VITALS: Ht 167.6 cm; Wt 95.0 kg
[~2022-11-26 17:27] MED LIST changes: +IBUP1TAB7 PO; +MULTTAB20 PO; +PANT40TA29 PO
[2022-11-26] MEDS ORDERED: CEPHALEXIN 500 MG CAP PO ONE (18:40)
[2022-11-26] MEDS ORDERED: BOOSTRIX VACCINE (TETANUS/DIPHTH/ACEL. PERTUSSIS) 0.5ML SYR IM ONE (18:40)
[2022-11-26] MEDS ORDERED: LIDOCAINE 1% MDV 20ML VIAL SC ONE (18:40)
[2022-11-26] MEDS ORDERED: CEPH500C PO (21:17)
[2022-11-26 21:22] VITALS: BP 114/80; TEMP 98.4; O2SAT 99
== END 2022-11-26 21:25 | disposition home or self-care (01) ==
LOC: M ED 17:27
DX: S41.112A Laceration without foreign body of left upper arm, initial encounter (principal); E03.9 Hypothyroidism, unspecified; R51.9 Headache, unspecified; W26.0XXA Contact with knife, initial encounter; Y92.009 Unspecified place in unspecified non-institutional (private) residence as the place of occurrence of the external cause; Z79.899 Other long term (current) drug therapy

== ENCOUNTER 2023-11-02 21:20 | Emergency (ER) | payer OTHER ==
[~2023-11-02] VITALS: Ht 167.6 cm; Wt 108.3 kg
[~2023-11-02 21:20] MED LIST changes: +CEPH500C PO; -CRAN400C PO; +CRANBERRY400 MG PO
[2023-11-03 00:41] LABS: BASO % 0.3 % (0.0-1.0); EOS # 0.2 10^3/uL (0.0-0.5); HEMATOCRIT 35.8 % (36.0-47.0); HEMOGLOBIN 11.4 g/dl (12.0-15.5); LYMPH # 2.5 10^3/uL (1.5-5.0); LYMPH % 24.7 % (24.0-44.0); MEAN CORPUSCULAR HEMOGLOBIN 27.7 pg (27.0-33.0); MEAN CORPUSCULAR HGB CONC 31.8 g/dl (32.0-36.5); MEAN CORPUSCULAR VOLUME 86.9 fl (80.0-96.0); MONO # 0.6 10^3/uL (0.0-0.8); MONO % 6.3 % (2.0-8.0); NEUTROPHILS # 6.6 10^3/uL (1.5-8.5); NEUTROPHILS % 66.2 % (36.0-66.0); PLATELET COUNT, AUTOMATED 313 10^3/uL (150-450); RED BLOOD COUNT 4.12 10^6/uL (4.00-5.40); WHITE BLOOD COUNT 9.9 10^3/uL (4.0-10.0)
[2023-11-03 00:51] LABS: BLOOD UREA NITROGEN 11 MG/DL (9-23); CALCIUM LEVEL 8.3 MG/DL (8.5-10.1); CARBON DIOXIDE LEVEL 27 MMOL/L (20-31); CHLORIDE LEVEL 108 MMOL/L (98-107); GLOMERULAR FILTRATION RATE > 60.0 (>60); GLUCOSE, FASTING 73 MG/DL (60-100); POTASSIUM SERUM 4.1 MMOL/L (3.5-5.1); SODIUM LEVEL 139 MMOL/L (136-145)
[2023-11-03] MEDS: LIDOCAINE 2% MDV 20ML VIAL SC ONE (01:13)
[2023-11-03] MEDS ORDERED: DOXY-440 PO (01:38)
[2023-11-03] MEDS: DOXYCYCLINE HYCLATE 100 MG in D5W MINI-BAG PLUS 100 ML IV ONE (02:05)
[2023-11-03 03:11] VITALS: BP 133/62; TEMP 98.1; O2SAT 100
== END 2023-11-03 03:13 | disposition home or self-care (01) ==
LOC: M ED 21:20
DX: L02.411 Cutaneous abscess of right axilla (principal)

== ENCOUNTER 2024-01-30 08:14 | Observation (INO) | payer OTHER ==
[2024-01-30] VITALS (10 sets, daily range): BP systolic 93–126; BP diastolic 52–67; TEMP 97.3–99.2; O2SAT 98–100
[~2024-01-30] VITALS: Ht 167.6 cm; Wt 115.0 kg
[~2024-01-30 08:14] MED LIST changes: +DOXY-440 PO
[2024-01-30] MEDS: NS (Normal Saline) 0.9% 1,000 ML IV ONE (08:26)
[2024-01-30 08:48] LABS: HEMATOCRIT 21.4 % (36.0-47.0); MEAN CORPUSCULAR HEMOGLOBIN 29.4 pg (27.0-33.0); MEAN CORPUSCULAR HGB CONC 32.7 g/dl (32.0-36.5); MEAN CORPUSCULAR VOLUME 89.9 fl (80.0-96.0); PLATELET COUNT, AUTOMATED 206 10^3/uL (150-450); RED BLOOD COUNT 2.38 10^6/uL (4.00-5.40); WHITE BLOOD COUNT 13.5 10^3/uL (4.0-10.0)
[2024-01-30] MEDS ORDERED: propofoL 200 MG/20 ML VIAL As Ordered ONE (10:09)
[2024-01-30] MEDS ORDERED: LIDOCAINE 2% 100MG/5ML SDV (FOR ANES.) As Ordered ONE (10:09)
[2024-01-30] MEDS ORDERED: ONDANSETRON 4MG 2ML VIAL As Ordered ONE (10:11)
[2024-01-30] MEDS ORDERED: fentaNYL 100 MCG/2 ML INJECTION As Ordered ONE (10:16)
[2024-01-30] MEDS ORDERED: MIDAZOLAM INJ 2MG/2ML VIAL As Ordered ONE (10:16)
[2024-01-30] MEDS ORDERED: HOME MED LIST COMPLETE! XX SCH (10:30)
[2024-01-30 11:51] LABS: INR 1.1; PARTIAL THROMBOPLASTIN TIME 25.5 SECONDS (24.8-34.2); PROTHROMBIN TIME 14.5 SECONDS (12.5-14.5)
[2024-01-30] MEDS ORDERED: ROCURONIUM BROMIDE 50MG/5ML VIAL As Ordered ONE (12:03)
[2024-01-30] MEDS: DOXYCYCLINE HYCLATE 100MG/10ML VIAL As Ordered ONE (12:05)
[2024-01-30] MEDS ORDERED: ACETAMINOPHEN 1000MG/100ML IV BAG As Ordered ONE (12:10)
[2024-01-30] MEDS ORDERED: SUGAMMADEX SODIUM 500 MG/5 ML VIAL (BRIDION) As Ordered ONE (12:18)
[2024-01-30] MEDS: METHYLERGONOVINE MALEATE 0.2MG/ML 1ML VIAL As Ordered ONE (13:00)
[2024-01-30] MEDS ORDERED: oxyCODONE 5MG TAB PO PRN ×2 (13:10→13:45)
[2024-01-30] MEDS ORDERED: MORPHINE 2 MG/ML 1ML VIAL IV PRN (13:10)
[2024-01-30] MEDS ORDERED: ONDANSETRON 4MG 2ML VIAL IV PRN (13:10)
[2024-01-30] MEDS ORDERED: fentaNYL 100 MCG/2 ML INJECTION IV PRN (13:10)
[2024-01-30] MEDS ORDERED: IBUPROFEN 600MG TAB PO PRN (13:45)
[2024-01-30] MEDS: LR 1,000 ML IV SCH (14:48)
[2024-01-30] MEDS: ACETAMINOPHEN 500 MG TAB PO PRN (15:31)
[2024-01-30 21:24] LABS: HEMATOCRIT 23.9 % (36.0-47.0); HEMOGLOBIN 8.2 g/dl (12.0-15.5); MEAN CORPUSCULAR HEMOGLOBIN 29.8 pg (27.0-33.0); MEAN CORPUSCULAR HGB CONC 34.3 g/dl (32.0-36.5); MEAN CORPUSCULAR VOLUME 86.9 fl (80.0-96.0); PLATELET COUNT, AUTOMATED 207 10^3/uL (150-450); RED BLOOD COUNT 2.75 10^6/uL (4.00-5.40); WHITE BLOOD COUNT 15.1 10^3/uL (4.0-10.0)
[2024-01-31 01:00] VITALS: BP 141/67; TEMP 98.4; O2SAT 99
[2024-01-31 05:00] VITALS: BP 110/52; TEMP 99.1; O2SAT 97
[2024-01-31 07:00] LABS: HEMATOCRIT 21.6 % (36.0-47.0); HEMOGLOBIN 7.4 g/dl (12.0-15.5); MEAN CORPUSCULAR HEMOGLOBIN 29.7 pg (27.0-33.0); MEAN CORPUSCULAR HGB CONC 34.3 g/dl (32.0-36.5); MEAN CORPUSCULAR VOLUME 86.7 fl (80.0-96.0); PLATELET COUNT, AUTOMATED 183 10^3/uL (150-450); RED BLOOD COUNT 2.49 10^6/uL (4.00-5.40); WHITE BLOOD COUNT 12.2 10^3/uL (4.0-10.0)
[2024-01-31 08:25] VITALS: BP 99/44; TEMP 97; O2SAT 100
[2024-01-31 12:30] VITALS: BP 119/67; TEMP 97.8; O2SAT 100
[2024-01-31 13:00] VITALS: BP 111/57; TEMP 98.5; O2SAT 98
[2024-02-01] MEDS ORDERED: FERR325T3 PO (20:20)
== END 2024-01-31 16:15 | disposition home or self-care (01) ==
LOC: EDBD 08:14 → M ED 08:14 → INTOOBSV 11:01 → M ED INP 11:01 → M PED 14:10
PROVIDERS: ADMIT Obstetrics & Gynecology; ATTEND Obstetrics & Gynecology
DX: O02.1 Missed abortion (principal)
CPT/HCPCS: 36415; 36430; 59821; 76856; 76857; 80047; 85027; 85384; 85610; 85730; 86850; 86900; 86901; 86920; 88305; 96361; 96374; 99285; J0131; J0665; J1100; J2210; J2250; J2405; J3010; P9016

== ENCOUNTER 2024-02-01 16:47 | Emergency (ER) | payer OTHER ==
[~2024-02-01] VITALS: Ht 167.6 cm; Wt 111.6 kg
[2024-02-01 17:33] LABS: BASO % 0.4 % (0.0-1.0); EOS # 0.2 10^3/uL (0.0-0.5); HEMATOCRIT 22.9 % (36.0-47.0); HEMOGLOBIN 7.6 g/dl (12.0-15.5); LYMPH # 2.7 10^3/uL (1.5-5.0); LYMPH % 31.7 % (24.0-44.0); MEAN CORPUSCULAR HEMOGLOBIN 29.3 pg (27.0-33.0); MEAN CORPUSCULAR HGB CONC 33.2 g/dl (32.0-36.5); MEAN CORPUSCULAR VOLUME 88.4 fl (80.0-96.0); MONO # 0.5 10^3/uL (0.0-0.8); MONO % 5.8 % (2.0-8.0); NEUTROPHILS % 58.6 % (36.0-66.0); PLATELET COUNT, AUTOMATED 203 10^3/uL (150-450); RED BLOOD COUNT 2.59 10^6/uL (4.00-5.40); WHITE BLOOD COUNT 8.5 10^3/uL (4.0-10.0)
[2024-02-01] MEDS: ONDANSETRON 4MG 2ML VIAL IV ONE (17:41)
[2024-02-01 18:02] LABS: ALBUMIN 2.2 G/DL (3.2-5.2); ALKALINE PHOSPHATASE 47 U/L (35-104); ALT/SGPT 21 U/L (7.0-40); AST/SGOT 29 U/L (<34); BILIRUBIN,DIRECT < 0.1 MG/DL (<0.4); BILIRUBIN,TOTAL 0.2 MG/DL (0.3-1.2); BLOOD UREA NITROGEN < 5 MG/DL (9-23); CALCIUM LEVEL 8.3 MG/DL (8.5-10.1); CARBON DIOXIDE LEVEL 27 MMOL/L (20-31); CHLORIDE LEVEL 111 MMOL/L (98-107); CREATININE FOR GFR 0.53 MG/DL (0.55-1.30); GLOMERULAR FILTRATION RATE > 60.0 (>60); GLUCOSE, FASTING 108 MG/DL (60-100); POTASSIUM SERUM 3.3 MMOL/L (3.5-5.1); SODIUM LEVEL 144 MMOL/L (136-145); TOTAL PROTEIN 5.3 G/DL (5.7-8.2)
[2024-02-01] MEDS: POTASSIUM CHLORIDE 10MEQ SR TABLET PO ONE (18:11)
[2024-02-01 19:12] VITALS: BP 101/58; TEMP 97.8; O2SAT 99
[2024-02-01 19:27] VITALS: BP 98/55; TEMP 97.5; O2SAT 99
[2024-02-01 19:57] VITALS: BP 101/58; TEMP 97.9; O2SAT 100
[2024-02-01] MEDS ORDERED: FERR325T3 PO (20:20)
[2024-02-01 20:27] VITALS: BP 104/59; TEMP 97.4; O2SAT 98
[2024-02-01 21:00] VITALS: BP 101/55; TEMP 98.4; O2SAT 99
[2024-02-01 22:00] VITALS: BP 112/78; TEMP 98.8; O2SAT 100
== END 2024-02-01 22:04 | disposition home or self-care (01) ==
LOC: M ED 16:47
DX: N93.9 Abnormal uterine and vaginal bleeding, unspecified (principal); N99.820 Postprocedural hemorrhage of a genitourinary system organ or structure following a genitourinary system procedure
CPT/HCPCS: 36430; 80048; 80076; 85025; 86850; 86900; 86901; 86920; 96374; 99285; J2405; P9016

== ENCOUNTER 2024-12-03 07:49 | Emergency (ER) | payer OTHER ==
[~2024-12-03] VITALS: Ht 167.6 cm; Wt 106.9 kg
[2024-12-03] MEDS ORDERED: TRANEXAMIC ACID INJection 1,000 MG in IV FLUID PLACE HOLDER 1 EA IV ONE (08:55)
[2024-12-03 09:37] LABS: PLATELET COUNT, AUTOMATED 314 10^3/uL (150-450)
[2024-12-03] MEDS: TRANEXAMIC ACID INJection 1,000 MG in NS 100 ML IV ONE (10:29)
[2024-12-03 11:45] VITALS: TEMP 98.6
[2024-12-03 12:15] VITALS: BP 108/57; O2SAT 96
== END 2024-12-03 12:39 | disposition home or self-care (01) ==
LOC: M ED 09:16
DX: O03.9 Complete or unspecified spontaneous abortion without complication (principal); Z87.59 Personal history of other complications of pregnancy, childbirth and the puerperium; Z79.899 Other long term (current) drug therapy

== ENCOUNTER → 2025-02-12 | Outpatient (RCR) | LOC: M EMPSSV 01-20 08:21 | PROVIDERS: ATTEND Family Medicine | DX: Z20.828 Contact with and (suspected) exposure to other viral communicable diseases (principal) ==